=== PATIENT | female | born 1950 | race Two or more races ===

== ENCOUNTER 2024-08-28 09:18 | Emergency (ER) | payer OTHER ==
[~2024-08-28] VITALS: Ht 162.6 cm; Wt 52.2 kg
[~2024-08-28 09:18] MED LIST: LEVAQUIN500 MG PO
[2024-08-28] MEDS ORDERED: KETOROLAC TROMETHAMINE 30 MG VIAL IM STA (11:07)
[2024-08-28 11:54] LABS: HEMATOCRIT 41.2 % (36.0-45.00); HEMOGLOBIN 13.7 g/dL (12.0-15.00); MEAN CELL VOLUME 93.8 fL (80.00-100.00); MEAN CORPUSCULAR HEMOGLOBIN 31.2 pg (27.00-32.0); MEAN CORPUSCULAR HGB CONC 33.3 g/dl (32.0-36.0); PLATELET COUNT 282 K/uL (150-450); RED BLOOD COUNT 4.39 M/uL (4.00-6.00); RED CELL DISTRIBUTION WIDTH 13.8 % (11.5-14.5)
[2024-08-28 12:17] LABS: CALCIUM 9.7 mg/dL (8.5-10.1); CREATININE SERUM 0.77 mg/dL (0.55-1.02); GFR 73.28; POTASSIUM 4.59 mEq/L (3.5-5.1)
[2024-08-28 12:29] LABS: URINE APPEARANCE Clear; URINE BACTERIA 62.9 uL (0.0-1933); URINE BILIRRUBIN Negative (NEGATIVE); URINE BLOOD Negative; URINE CAST 1.83 uL (0.0-1.40); URINE COLOR Dark Yellow; URINE EPITHELIAL CELLS 19.7 uL (0.0-38.8); URINE GLUCOSE Negative (NEGATIVE); URINE KETONE 15 (NEGATIVE); URINE LEUKOCYTE Negative; URINE NITRATE Negative; URINE PROTEIN Trace (NEGATIVE); URINE RBC 13.5 uL (0.0-20.8); URINE WBC 19.4 uL (0.0-23.2)
[2024-08-28 12:43] LABS: URINE MUCUS HEAVY
[2024-08-28 12:44] LABS: URINE CRYSTALS MODERATE /HPF
== END 2024-08-28 13:25 | disposition home or self-care (01) ==
LOC: ER 09:20
PROVIDERS: General Practice
DX: R53.81 Other malaise (principal); M54.9 Dorsalgia, unspecified
CPT/HCPCS: 36415; 72100; 96372; 99283; J1885